=== PATIENT | female | born 1965 | race Caucasian/White ===

== ENCOUNTER → 2024-06-22 13:56 | Outpatient (REF) | payer OTHER, SELFPAY | LOC: HWRAD 13:56 | PROVIDERS: ATTENDING PHYSICIAN Physician Assistant Medical | DX: M25.552 Pain in left hip (principal) | CPT/HCPCS: 73502 ==

== ENCOUNTER 2024-08-18 16:26 | Emergency (ER) | payer BC, SELFPAY ==
[2024-08-18 16:29] VITALS: BP 113/86
[2024-08-18 18:32] VITALS: BMI 22.7
--- NOTE | 2024-08-18 18:35 | EDRN ---
Pt slipped on wet snow on hardwood floor in her house onto L hip. Pt landed w/L ankle up to mid back w/ knee flexed and hip turned in towards body center, adducted.
[2024-08-18 18:36] VITALS: BP 111/75
--- NOTE | 2024-08-18 20:09 | ED.GENMED ---
History of Present Illness
General
Chief Complaint: Musculo-Skeletal Complaint
Source: patient
Exam Limitations: none
Time Seen by Provider: 08/18/24 19:17
Nursing documentation reviewed up to this point in time: agreed with
History of Present Illness
History of Present Illness:
Patient is a 58-year-old female who complains of left hip pain. She fell onto this left hip area 2 weeks ago and since then has had pain to the left hip area and into the groin rating down her thigh. She states can barely walk on her hip. She has
taken occasional ibuprofen last took ibuprofen this morning. No other injuries.
Past History
Past History
ED Past Medical History: None and Other (previous shoulder surgery �2, Lyme's disease)
Social History
Tobacco: Non-smoker
Alcohol: Occasional
Living: with family
Family History
Family History: Other (Father with lung cancer)
Review of Systems
Review of Systems
Allergies reviewed?: Yes
All Other Systems: ROS reviewed and negative except as documented in HPI and ROS
Constitutional: Reports no symptoms; Denies fever
Musculoskeletal: Reports other (left hip/groin pain )
Skin: Reports no symptoms
Neurological: Reports no symptoms
Psychiatric: Reports no symptoms
Phy Exam
General Physical Exam
General Presentation: no apparent distress
General age: appears stated age
General Skin: warm and dry
General Habitus: normal
General Mental: alert
General Hydration: appears well hydrated
Neurological Exam
Neurological Exam: alert and oriented x3
Musculoskeletal Exam
Musculoskeletal Exam: other (tender to left hip /groin , pain with lifting left leg off of stretcher, good internal /external rotation no deformity )
Skin Exam
Skin Exam: normal color and warm/dry
Psychiatric Exam
Psychiatric Exam: normal mood/affect
Course
Orders/Labs/Results
Orders:
Orders
08/18/24 16:31
CR Hip - LT w/wo Pel 2-3 Vw* Urgent
Comment:
Reason For Exam: injury
Include a pelvis x-ray?: Yes
08/18/24 20:14
Acetaminophen [Tylenol] 1,000 mg PO NOW STA
Ketorolac [Toradol] 30 mg IM NOW STA
Vital Signs
Initial and Last Documented VS:
Initial Vital Signs
Temp Pulse Resp BP Pulse Ox
98.2 F 78 18 113/86 99
08/18/24 16:29 08/18/24 16:29 08/18/24 16:29 08/18/24 16:29 08/18/24 16:29
Last Documented Vital Signs
Temp Pulse Resp BP Pulse Ox
98.2 F 64 16 111/75 99
08/18/24 16:29 08/18/24 18:36 08/18/24 18:36 08/18/24 18:36 08/18/24 16:29
MDM/Problems Addressed
MDM/Problems Addressed:
Patient fell onto left hip 2 weeks ago and has had pain since. She is complaining the groin as well as the left hip. X-rays negative. On exam she has full internal and external rotation of the hip without discomfort however has pain with lifting
leg and complains of pain in the left groin. CT ordered however patient declines and does not want a wait for the CAT scan she wishes to follow-up with family doctor or orthopedics.
*Radiology
Radiology exam reviewed: preliminary read by ED provider (NEG for fx)
*Critical Care Note
Total Time (30-74mins, 75-104mins- exclusive of procedures): Not Applicable
ED Attending Note
-
Portions of this chart may have been created with voice recognition software.� Occasional wrong word or��sound alike� substitutions may have occurred due to the inherent limitations of voice recognition software.
Discharge Plan
Departure
Patient Disposition: Home (Routine Discharge)
Date of Disposition: 08/18/24
Time of Disposition: 20:38
Patient with high blood pressure during this ER visit?: No
Condition: Fair
Covid-19: Not Applicable
Discharge Problem:
Acute hip pain
Instructions: Hip Pain ED
Prescriptions:
No Action
Advil
2 tab PO PRN PRN (Reason: discomfort)
Referrals:
Ismael Graf MD [Active] -
Marcia Gracia PA-C [Family Provider] -
Activity Restrictions/Additional Instructions:
As discussed follow-up with orthopedics for reevaluation of hip pain. You may take ibuprofen as needed return if any worsening of symptoms.
Interventions
Interventions:
*Risk Screen - Suicide Last Done: 08/18/24 18:33
*General Assessment Last Done: 08/18/24 18:32
*Neglect/Abuse Screening Last Done: 08/18/24 18:33
ED- Fall Risk Assessment Last Done: 08/18/24 18:33
*ED COVID-19 Vaccine History Last Done: 08/18/24 18:32
*Nursing Disposition Last Done: 08/18/24 20:46
ED-Musculoskeletal Assessment Last Done: 08/18/24 18:33
Discharge Date and Time
Discharge Date/Time: 08/18/24 20:46
Print Language: MACEDONIAN
== END 2024-08-18 20:46 | disposition home or self-care (01) ==
LOC: EMR 16:26
PROVIDERS: EMERGENCY PHYSICIAN Student in an Organized Health Care Education/Training Program; FAMILY PHYSICIAN Physician Assistant Medical
DX: M25.552 Pain in left hip (principal); Z80.1 Family history of malignant neoplasm of trachea, bronchus and lung
CPT/HCPCS: 99283; 73502

== ENCOUNTER 2025-05-30 13:15 | Emergency (ER) | payer BC, SELFPAY ==
[2025-05-30 13:21] VITALS: BP 111/57
--- NOTE | 2025-05-30 14:33 | ED.GENMED ---
History of Present Illness
General
Chief Complaint: Musculo-Skeletal Complaint
Source: patient
Exam Limitations: none
Time Seen by Provider: 05/30/25 14:27
History of Present Illness
History of Present Illness:
Patient was lifting a keg yesterday. Gary pain in her right shoulder. She has had ongoing issues with the biceps tendinitis. However much worse in the last 24 hours. Some tingling to the right hand mostly the 2nd and 3rd finger. No weakness.
No chest pain shortness of breath or other complaints. Is positional in nature.
Past History
Past History
ED Past Medical History: None and Other (previous shoulder surgery �2, Lyme's disease)
Social History
Tobacco: Non-smoker
Alcohol: Occasional
Living: with family
Family History
Family History: Other (Father with lung cancer)
Phy Exam
Physical Exam
Physical Exam:
General: Nontoxic appearing in no distress
Skin: Warm and dry, no rash
Neuro: Alert, nontoxic, grossly nonfocal
Psychiatric: Good eye contact and appropriate
Musculoskeletal: Self splinting the right shoulder. Decreased abduction. Can only abduct to 45 degrees. Tenderness over the biceps tendon groove. No clavicle tenderness. No swelling. Good distal pulses and color. Interosseous intact. Flexion
extension of the wrist intact. [employer] normal. Some subjective tingling of the 2nd and 3rd digit.
Course
Orders/Labs/Results
Orders:
Orders
05/30/25 13:20
CR Shoulder - Right Min 2 View Urgent
Comment:
Reason For Exam: pain
05/30/25 14:32
Sling Right-Treatment ONCE
Vital Signs
Initial and Last Documented VS:
Initial Vital Signs
Temp Pulse Resp BP Pulse Ox
98.1 F 79 18 111/57 97
05/30/25 13:21 05/30/25 13:21 05/30/25 13:21 05/30/25 13:21 05/30/25 13:21
Last Documented Vital Signs
Temp Pulse Resp BP Pulse Ox
98.1 F 79 18 111/57 97
05/30/25 13:21 05/30/25 13:21 05/30/25 13:21 05/30/25 13:21 05/30/25 14:36
MDM/Problems Addressed
Differential Diagnosis Includes:
Possible partial rotator cuff tear versus biceps tendinitis. Versus both. Medically stable. Neurovascular intact. No indication for stat MRI. Patient clearly wanted an MRI and I explained this is unfortunately not how the system is available to
work. 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 She will follow-up tomorrow with orthopedics.
*Radiology
Radiology exam reviewed: radiology read reviewed (Degenerative changes)
*Pulse Oximetry
SaO2: 97
Oxygen Mode of Delivery: Room air
Patient hypoxic: no
*Critical Care Note
Total Time (30-74mins, 75-104mins- exclusive of procedures): Not Applicable
ED Attending Note
-
Portions of this chart may have been created with voice recognition software.� Occasional wrong word or��sound alike� substitutions may have occurred due to the inherent limitations of voice recognition software.
Discharge Plan
Departure
Patient Disposition: Home (Routine Discharge)
Date of Disposition: 05/30/25
Time of Disposition: 14:33
Patient with high blood pressure during this ER visit?: No
Discharge Problem:
Right shoulder injury, Biceps tendinitis, Possible rotator cuff injury, Possible median nerve injury
Instructions: Shoulder pain - ED (DC)
Prescriptions:
No Action
Advil
2 tab PO PRN PRN (Reason: discomfort)
Activity Restrictions/Additional Instructions:
See Dr. Ferrell tomorrow.
Advil or Motrin for pain. You can also take Tylenol
Take the arm out of the sling 5 or 6 times per day and move the arm in a circular motion as we discussed
Interventions
Interventions:
*Risk Screen - Suicide Last Done: 05/30/25 13:20
*General Assessment Last Done: 05/30/25 14:42
*Neglect/Abuse Screening Last Done: 05/30/25 13:20
*ED- Fall Risk Assessment Last Done: 05/30/25 14:42
*ED COVID-19 Vaccine History Last Done: 05/30/25 14:42
*ED Influenza Vaccine History Last Done: 05/30/25 14:42
*Nursing Disposition Last Done: 05/30/25 14:43
ED-Musculoskeletal Assessment Last Done: 05/30/25 14:42
Discharge Date and Time
Discharge Date/Time: 05/30/25 14:44
Print Language: SYRIAC
== END 2025-05-30 14:44 | disposition home or self-care (01) ==
LOC: EMR 13:15
PROVIDERS: EMERGENCY PHYSICIAN Emergency Medicine
DX: S49.91XA Unspecified injury of right shoulder and upper arm, initial encounter (principal); M75.20 Bicipital tendinitis, unspecified shoulder; X50.9XXA Other and unspecified overexertion or strenuous movements or postures, initial encounter; Z80.1 Family history of malignant neoplasm of trachea, bronchus and lung
CPT/HCPCS: 99283; 73030

== ENCOUNTER → 2025-06-05 07:11 | Outpatient (REF) | payer BC, SELFPAY | LOC: PAVMRI 07:11 | PROVIDERS: ATTENDING PHYSICIAN Orthopaedic Surgery Hand Surgery | DX: M25.511 Pain in right shoulder (principal); M75.21 Bicipital tendinitis, right shoulder | CPT/HCPCS: 73221 ==